=== PATIENT | male | born 1980 | race Caucasian/White ===

== ENCOUNTER 2019-06-07 01:59 | Emergency (ER) | payer OTHER, SELFPAY ==
--- NOTE | ~2019-06-07 | XR_ITS ---
EXAMINATION: XR lumbar spine 2-3V DATE: 06/07/2019 03:23 INDICATION: Low back pain. Fall. TECHNIQUE: 3 views of lumbar spine were obtained. COMPARISON: CT abdomen and pelvis 09/29/2018 FINDINGS: There are chronic bilateral L5 pars defects. There is mild chronic height loss of L5 verteb ral body posteriorly. There is 11 mm anterolisthesis of L5 on S1. There is mildly decreased disc heig ht at L1-L2 and moderately decreased disc height at L5-S1. There is multilevel mild facet joint osteo arthritis. There is moderate facet joint osteoarthritis at L5-S1. IMPRESSION: 1. Chronic bilateral L5 pars defects with grade 2 anterolisthesis of L5 on S1. 2. Moderate lumbar spondylosis. Reviewed, dictated and finalized at location A. ATOR CONSTRUCTOR
[2019-06-07 02:00] VITALS: BP 141/87; PULSE 76; RESP 16; TEMP 36.3; O2SAT 100
--- NOTE | 2019-06-07 02:43 | ED.FALL ---
HPI - Fall General Chief Complaint: Fall Stated Complaint: fell down steps Time Seen by Provider: 06/07/19 02:27 Source: patient and RN notes reviewed Mode of arrival: ambulatory Limitations: no limitations History of Present Illness HPI Narrative: Pt is a 38 y/o male with a Hx of L5 fracture, who presents to the ED with c/o fall happening around 1 AM this morning. He notes that he was walking outside after work this morning when he slipped and fell down 6 stairs. Pt denies any LOC during the fall. He states that he landed on his rt hip during the fall, and currently reports rt lateral hip pain. He also reports rt low back pain, but notes that he has a Hx of chronic low back pain secondary to his previous L5 fracture. Pt currently denies any numbness/tingling in his lower extremities. MD complaint: fall Onset (ago): hour(s) (1.5) Fall from: down stairs (#) (6 stairs) Place fall occurred: work Loss of consciousness: none Context: tripped/slipped Location of injury: pelvis (rt hip) Location of injury - extremities: Right: thigh (rt lateral hip) Associated symptoms (after fall): other (rt low back pain) Related Data Home Medications Medication Instructions Recorded Confirmed cholecalciferol (vitamin D3) 125 5,000 unit PO DAILY 05/25/19 mcg (5,000 unit) tablet multivitamin 1 tablet PO DAILY 05/25/19 omeprazole 20 mg capsule,delayed 20 mg PO ONCE cap 05/25/19 05/25/19 release Allergies Allergy/AdvReac Type Severity Reaction Status Date / Time Penicillins Allergy Unknown FOUND Unverified 06/07/19 02:29 DURING ALLERGY TESTING Review of Systems Review of Systems: All systems reviewed & are unremarkable except as noted in HPI and below Musculoskeletal: Musculoskeletal: Reports back pain (rt low back pain) and Reports arthralgias (rt lateral hip pain) Neurologic: Denies numbness (lower extremities), Denies tingling (lower extremities) and Denies other (LOC) [facility] Past Medical History Medical History Cubital tunnel syndrome Depression GERD (gastroesophageal reflux disease) HTN (hypertension) Inguinal hernia L5 vertebral fracture Sleep apnea Surgical History Surgical History Hx of gastric bypass Hx of inguinal hernia repair S/P cubital tunnel release rt arm Family History Family History Father Family history of diabetes mellitus in first degree relative Diabetes mellitus Hypertension Mother Family history of malignant neoplasm of bone Family history of malignant neoplasm of breast in first degree relative Other Cerebrovascular accident Family history of arthritis Family history of malignant neoplasm Social History Social History Smoking status: Never smoker Alcohol intake: never Comments PCP is Dr. Gandara. Exam Narrative: Exam Narrative: GENERAL: Well-appearing, well-nourished, and in no acute distress. HEAD: Normocephalic, atraumatic. EXTREMITIES: Normal strength and range of motion of the right lower extremity without evidence of contusion or abrasion to the right hip or patient fell. Back: No midline tenderness of thoracic or lumbar spine but there is mild right paraspinal muscular discomfort in the low lumbar region. No visual evidence of trauma. SKIN: Warm, dry, no rash. NEURO: No focal deficits. Alert and oriented x3. PSYCH: Normal mood and affect. Course Course Emergency Course: Informed of results. Declined acetaminophen. D/c home. Vital Signs Vital signs: Vital Signs Temperature 97.4 F L 06/07/19 02:00 Pulse Rate 76 06/07/19 02:00 Respiratory Rate 16 06/07/19 02:00 Blood Pressure 141/87 H 06/07/19 02:00 Pulse Oximetry 100 06/07/19 02:00 Temperature 98 F 06/07/19 04:00 Pulse Rate 81 06/07/19 04:00 Respiratory Rate 12 06/07/19
[2019-06-07 04:00] VITALS: BP 140/78; PULSE 81; RESP 12; TEMP 36.6; O2SAT 100
== END 2019-06-07 04:00 | disposition home or self-care (01) ==
PROVIDERS: Emergency Provider Emergency Medicine; PCP Internal Medicine
DX: S70.01XA Contusion of right hip, initial encounter (principal); S39.012A Strain of muscle, fascia and tendon of lower back, initial encounter; K21.9 Gastro-esophageal reflux disease without esophagitis; Z98.84 Bariatric surgery status; I10 Essential (primary) hypertension; G47.30 Sleep apnea, unspecified; W10.9XXA Fall (on) (from) unspecified stairs and steps, initial encounter
CPT/HCPCS: 72100; 99283

== ENCOUNTER 2020-07-02 14:22 | Emergency (ER) | payer OTHER, SELFPAY ==
--- NOTE | ~2020-07-02 | CT_ITS ---
EXAMINATION: CT brain wo con INDICATION: Transient ischemic attack, right-sided facial and toe numbness COMPARISON: None TECHNIQUE: Standard unenhanced head CT. The dose-length product (DLP) was 681.00 mGy-cm. The mA was a djusted according to patient size. Iterative reconstruction technique was employed. FINDINGS: There is no intracranial hemorrhage, acute infarction, or abnormal mass lesion. The ventric les are normal. There is no abnormal mass effect or midline shift. The sr-white matter differentiat ion is normal. The basal cisterns are patent. The orbits are normal. The paranasal sinuses, mastoids and calvarium are normal. IMPRESSION: 1. No acute intracranial abnormality. Reviewed, dictated and finalized at location A. BROKER
--- NOTE | ~2020-07-02 | XR_ITS ---
EXAMINATION: XR chest 1V portable DATE: 07/02/2020 16:51 INDICATION: Right-sided numbness extending to the right arm. Hypertension. TECHNIQUE: PA view of the chest was obtained. COMPARISON: None FINDINGS: The lungs are clear with no focal airspace opacities, pulmonary edema, pleural effusion or pneumothor ax. The cardiomediastinal silhouette is normal. Mild thoracic dextrocurvature with mild spondylosis. IMPRESSION: 1. No acute cardiopulmonary disease. Reviewed, dictated and finalized at location B. DRILL OPERATOR
[2020-07-02 14:51] VITALS: BP 128/68; PULSE 68; RESP 18; TEMP 36.5; O2SAT 98
--- NOTE | 2020-07-02 14:55 | ECG_ITS ---
Measurements Intervals [place] Rate: 73 P: 70 GA: 176 QRS: 48 QRSD: 92 T: 48 QT: 374 QTc: 413 Interpretive Statements SINUS RHYTHM BASELINE ARTIFACT- I, II, AVR NORMAL ECG Electronically Signed On 07-02-2020 15:15:05 [employer]ARR[employer] TIER by Mario Bueno D.O.
[2020-07-02 15:08] LABS: Basophils Percent Auto 0.5 % (0.2-1.2); Hematocrit 47.1 % (42.0-52.0); Hemoglobin 16.7 g/dL (14.0-18.0); Lymphocytes Absolute Auto 1.02 K/mm3 (0.9-3.2); Lymphocytes Percent Auto 25.4 % (18.3-44.2); Mean Corpuscular HGB Conc 35.5 g/dl (32-36); Mean Corpuscular Hemoglobin 31.9 pg (26-34); Mean Corpuscular Volume 89.9 fl (80-100); Mean Platelet Volume 9.1 fl (7.4-10.4); Monocytes Absolute Auto 0.3 K/mm3 (0.1-0.6); Monocytes Percent Auto 7.2 % (2.6-8.5); Neutrophils Absolute Auto 2.7 K/mm3 (1.3-6.7); Neutrophils Percent Auto 65.9 % (45.5-73.1); Platelet Count Result 203 k/mm3 (150-375); Red Blood Count 5.24 M/mm3 (4.6-6.20); Red Cell Distribution Width 12.1 % (11.5-14.5)
[2020-07-02 15:26] LABS: Anion Gap 6 mmol/L (8-16); Blood Urea Nitrogen 13 mg/dL (9-20); Calcium 9.3 mg/dL (8.4-10.2); Carbon Dioxide 30 mmol/L (22-30); Chloride 105 mmol/L (98-107); Estimated CRCL calculation 148 ml/min; Estimated Glomerular Filt Rate > 60; Glucose 94 mg/dL (75-110); Sodium 141 mmol/L (137-145)
[2020-07-02 15:37] LABS: Troponin I < 0.012 ng/mL (0.000-0.034)
[2020-07-02 19:11] VITALS: BP 129/81; PULSE 73; RESP 19; TEMP 36.9; O2SAT 97
[2020-07-02 20:00] VITALS: BP 122/75; PULSE 73; RESP 19; O2SAT 99
[2020-07-02 21:17] VITALS: BP 128/74; PULSE 69; RESP 20; O2SAT 100
--- NOTE | 2020-07-02 21:34 | ED.NEUROSD ---
HPI - Neuro Symptoms/Deficit General Chief Complaint: Neuro Symptoms/Deficit Stated Complaint: RT arm numbness x 2 days Time Seen by Provider: 07/02/20 18:56 History of Present Illness HPI Narrative: Patient is a 39-year-old male who presents ER with intermittent numbness of the right arm. Reports symptoms first began 2 days ago. He woke up at night and felt like his arm was a little bit heavy. It lasted for less than a minute after he woke up and he had full strength. He then felt like he might of had some increase sensitivity to his right cheek and right foot. The symptoms resolved rapidly as well. He then reports today he woke up with similar symptoms that resolved within a minute. Reports he has had no slurred speech or gait disturbance. He feels like his right cheek has increased sensitivity but does not hurt/tingle/burning. No rash. No previous history of CVA. Patient does have some chronic weakness in his right thumb/second digit due to a previous surgery and nerve injury. Related Data Home Medications Medication Instructions Recorded Confirmed cholecalciferol (vitamin D3) 125 5,000 unit PO DAILY 05/25/19 mcg (5,000 unit) tablet multivitamin 1 tablet PO DAILY 05/25/19 calcium citrate 500 mg-vit D3 12.5 gm PO 06/25/19 mcg (500 unit)/5 gram oral powder sennosides 8.6 mg-docusate sodium 1 tab-cap PO DAILY 06/25/19 50 mg tablet omeprazole 20 mg capsule,delayed 20 mg PO DAILY cap 01/04/20 01/04/20 release Allergies Allergy/AdvReac Type Severity Reaction Status Date / Time Penicillins Allergy Unknown FOUND Verified 07/02/20 21:18 DURING ALLERGY TESTING Review of Systems Review of Systems: All systems reviewed & are unremarkable except as noted in HPI and below Constitutional: Constitutional: Denies chills, Denies fever(s) and Denies weakness ENT: Denies nasal congestion and Denies sore throat Cardiovascular: Cardiovascular: Denies chest pain and Denies radiating jaw, neck or arm pain Neurologic: Denies syncope, Denies focal weakness and Reports numbness PMFSH Past Medical History Medical History (Updated 07/02/20 @ 21:40 by Pedro Luis Menendez MD) Cubital tunnel syndrome Depression GERD (gastroesophageal reflux disease) HTN (hypertension) Inguinal hernia L5 vertebral fracture Sleep apnea Surgical History Surgical History (Updated 01/04/20 @ 10:18 by Josemanuel Gandara MD) Hx of gastric bypass Hx of inguinal hernia repair S/P cubital tunnel release rt arm Family History Family History Father Family history of diabetes mellitus in first degree relative Diabetes mellitus Hypertension Mother Family history of malignant neoplasm of bone Family history of malignant neoplasm of breast in first degree relative Other Cerebrovascular accident Family history of arthritis Family history of malignant neoplasm Social History Social History Smoking status: Never smoker Alcohol intake: never Gender identity (if verbalized by the patient): Male Exam Narrative: Exam Narrative: GENERAL: Well-appearing, well-nourished, and in no acute distress. HEAD: Normocephalic, atraumatic. ENT: Mucous membranes moist. CHEST: Clear to auscultation. No respiratory distress. HEART: Regular rate and rhythm. Normal peripheral pulses. ABDOMEN: Soft, nontender, nondistended. EXTREMITIES: Normal range of motion. No edema. Atrophy to the first webspace of the right hand from previous neurologic injury. SKIN: Warm, dry, no rash. NEURO: No upper or lower extremity drift. Cranial nerves II through XII intact. Normal finger-nose testing. Alert and oriented x3. PSYCH: Normal mood and affect. Course Course Emergency Course: Unremarkable evaluation. Symptoms could be related to patient not wearing his CPAP with his sleep apnea given the fact that they occur in the early mornin
== END 2020-07-02 22:20 | disposition home or self-care (01) ==
PROVIDERS: Emergency Medicine; Emergency Provider Emergency Medicine; PCP Internal Medicine
DX: R20.2 Paresthesia of skin (principal); K21.9 Gastro-esophageal reflux disease without esophagitis; G47.30 Sleep apnea, unspecified; Z98.84 Bariatric surgery status
CPT/HCPCS: 36415; 70450; 71045; 80048; 84484; 85025; 93005; 99284

== ENCOUNTER 2020-07-17 10:47 | Outpatient (CLI) | payer OTHER, SELFPAY ==
--- NOTE | ~2020-07-17 | US_ITS ---
EXAMINATION: US carotid duplex BI DATE: 07/17/2020 11:29 INDICATION: Transient ischemic attack. TECHNIQUE: Grayscale, color Doppler, and pulsed Doppler images of the cervical carotid arteries were obtained. The degree of vessel stenosis is placed in one of the following categories: normal, <50%, 5 0-69%, >=70% but less than near-occlusion, near-occlusion, or total occlusion. Note that percent sten osis relative to normal distal artery lumen diameter is indirectly measured from velocity measurement s as described by Bairon, et al. Radiology 2003; [id number]. COMPARISON: None. FINDINGS: RIGHT: The right common carotid artery (CCA) peak systolic velocity (PSV) is 111 cm/s. The right internal ca rotid artery (ICA) PSV is 99 cm/s. The right ICA end-diastolic velocity (EDV) is 23 cm/s. The right I CA/CCA PSV ratio is 0.9. Grayscale and color Doppler images yield an estimate of <50% diameter reduct ion from plaque in the ICA. There is antegrade flow in the right vertebral artery. LEFT: The left CCA PSV is 98 cm/s. The left ICA PSV is 82 cm/s. The left ICA EDV is 21 cm/s. The left ICA/C CA PSV ratio is 0.8. Grayscale and color Doppler images yield an estimate of <50% diameter reduction from plaque in the ICA. There is antegrade flow in the left vertebral artery. IMPRESSION: 1. <50% stenosis in the right internal carotid artery. 2. <50% stenosis in the left internal carotid artery. Reviewed, dictated and finalized at location A.
== END 2020-07-17 10:48 | disposition home or self-care (01) ==
PROVIDERS: PCP Internal Medicine; Visit Provider Internal Medicine
DX: I65.23 Occlusion and stenosis of bilateral carotid arteries (principal)
CPT/HCPCS: 93880

== ENCOUNTER 2020-12-11 08:04 | Outpatient (CLI) | payer OTHER, SELFPAY ==
[2021-01-07 15:11] VITALS: BMI 36.6
--- NOTE | 2021-01-07 15:11 | WPDSLEEPSTUD ---
Sleep Study Date of Study: 12/11/20 Ordering Provider: Tresa Toledo MD Interpreting Physician: Tresa Toledo MD Sleep Study Type: Split Polysomnogram Height: 1.78 m Weight: 115.666 kg Body Mass Index: 36.6 Neck Circumference (inches): 18.5 [place]: 8 Reason for Sleep Study prior obstructive sleep apnea, had weight loss surgery, recent TIA event. Sleep History Ambrsoe Christensen IV is a 40 year old male with a history of QUEENIE 15+ years ago when he was super obese, 400 lb, and had gastric surgery 3 years ago with a huge loss of weight, now around 250 lb, lowest was 210 lb. He wants repeat evaluation and treatment, as he has memory problems. Although he did not tolerate CPAP very well initially, he is still interested in possible use of CPAP again as a recent tingling episode was suspicious for a TIA, and Dr Gandara wanted a complete evaluation including sleep evaluation. He is a restless sleeper, was moving quite a bit and this made it difficult to keep the mask on. He occasionally awakens from sleep feeling short of breath. He rarely awakens at night with heartburn symptoms. He frequently snores loudly. He rarely has trouble sleeping with a cold. He occasionally wakes up gasping for breath at night. He rarely has breathing problems at night observed by others. He rarely sweats excessively at night. He does not notice his heart pounding or beating irregularly at night. He occasionally falls asleep during the day, occasionally falls asleep involuntarily but never while driving. He does not have loss of muscle tone with strong emotion. He does have problems with excessive daytime sleepiness, and is drowsy for 3 hours after waking in the morning. He does not feel paralyzed on waking or falling asleep and does not have vivid dreamlike scenes upon awakening or falling asleep. He does not feel afraid to go to sleep. He rarely has nightmares. He rarely remembers his dreams. He rarely has racing thoughts, feelings of sadness, depression or anxiety. He rarely notices parts of his body jerking. He does not kick at night. He rarely has crawling and aching feelings in his legs. He does not have any kind of leg pain at night. He does not have morning jaw pain. He frequently grinds his teeth during sleep. He rarely is bothered by pain during the day and is not awakened by pain at night. He rarely wakes up feeling stiff in the morning. He occasionally wakes up with sore achy muscles. He has memory problems and concentration difficulties. His normal bedtime is between 2:30 and 3:00 a.m., falling asleep within 10-20 minutes. He does not have nocturia in general. He does not wake up during the night. He wakes up it only for a moment and he rolls over returns to sleep within 5 minutes. He wakes the morning by 11:00 a.m., not feeling refreshed. He does not consume caffeine. e wakes up around 10:15 a.m. He does not take naps in the day although he does have recovery sleep on the weekends. His work schedule is from noon until 8:00 p.m. at the [employer]. He does not take naps, and a nap is not refreshing. He is usually drowsy in the morning for 3 hours or longer. [facility] Past Medical History Medical History Cubital tunnel syndrome Depression GERD (gastroesophageal reflux disease) HTN (hypertension) Inguinal hernia L5 vertebral fracture Obstructive sleep apnea Sleep apnea Surgical History Surgical History Hx of gastric bypass Hx of inguinal hernia repair S/P cubital tunnel release rt arm Family History Family History Father Family history of diabetes mellitus in first degree relative Diabetes mellitus Hypertension Mother Family history of malignant neoplasm of bone Family history of malignant neoplasm of breast in first degree relative Other Cerebrovascular accident
== END 2020-12-12 06:40 | disposition home or self-care (01) ==
LOC: ANHCSM 14:50
PROVIDERS: PCP Internal Medicine; Visit Provider Internal Medicine Critical Care Medicine
DX: G47.33 Obstructive sleep apnea (adult) (pediatric) (principal)
CPT/HCPCS: 95811

== ENCOUNTER 2021-09-28 00:08 | Emergency (ER) | payer OTHER, SELFPAY ==
--- NOTE | ~2021-09-28 | CT_ITS ---
EXAMINATION: CT abdomen pelvis wo con DATE: 09/28/2021 00:55 INDICATION: Possible swallowed foreign body (popsicle stick) TECHNIQUE: Computed tomography (CT) of the abdomen and pelvis was performed without intravenous contr ast. Automated exposure control and iterative reconstruction technique were employed. Exam dose: 155 4.32 mGy-cm total exam DLP. COMPARISON: 09/29/2018 CT abdomen pelvis FINDINGS: The lung bases are clear. Normal heart size. No pericardial or pleural effusion. Status post gastric bypass surgery. The gallbladder is not visualized. No hepatic, splenic, pancreatic, and adrenal or renal space-occupy ing mass lesion is evident. Normal caliber of the abdominal aorta. No intraperitoneal or retroperitoneal or pelvic mass lesion or adenopathy or ascites. The urinary bladder is evacuated. Prostate gland is unremarkable. No evidence of appendicitis. No bowel obstruction, bowel wall thickening, pneumatosis or intraperiton eal free air. Small fat-containing umbilical hernia. Bilateral L5 pars interarticularis defects with grade 2 anterolisthesis at L5-S1. Diffuse idiopathic skeletal hyperostosis of the thoracic spine. Bilateral hip osteoarthritis. IMPRESSION: No radiopaque foreign body identified Bilateral L5 pars interarticularis defects with grade 2 anterolisthesis at L5-S1 Reviewed, dictated and finalized at Location A. Reviewed, dictated and finalized at location A. IMPRESSION: No radiopaque foreign body identified Bilateral L5 pars interarticularis defects with grade 2 anterolisthesis at L5-S 1
[2021-09-28 00:11] VITALS: BP 148/89; PULSE 93; RESP 18; TEMP 36.2; O2SAT 100
--- NOTE | 2021-09-28 00:40 | PC.NURSE ---
Patient taken to CT at this time.
--- NOTE | 2021-09-28 00:40 | ED.GENADULT ---
HPI - General Adult General Chief complaint: Skin/Abscess/Foreign Body Stated complaint: possibly swallowed FB Time Seen by Provider: 09/28/21 00:22 History of Present Illness HPI narrative: 40-year-old male presents emergency room plaints of accidental ingestion of a foreign object. Patient states that he was finishing a popsicle, when he but the second half and accidentally ingested part of the wooden stick. Patient denies any dysphagia or difficulty swallowing. Denies any abdominal pain at this time. Related Data Home Medications Medication Instructions Recorded Confirmed cholecalciferol (vitamin D3) 125 5,000 unit PO DAILY 05/25/19 05/29/21 mcg (5,000 unit) tablet multivitamin 1 tablet PO DAILY 05/25/19 05/29/21 calcium citrate 500 mg-vit D3 12.5 gm PO 06/25/19 05/29/21 mcg (500 unit)/5 gram oral powder sennosides 8.6 mg-docusate sodium 1 tab-cap PO DAILY 06/25/19 05/29/21 50 mg tablet levocetirizine 5 mg tablet (Xyzal) 5 mg PO DAILY 07/10/20 05/29/21 ascorbic acid (vitamin C) 500 mg mg PO 11/06/20 05/29/21 capsule Allergies Allergy/AdvReac Type Severity Reaction Status Date / Time Penicillins Allergy Unknown FOUND Verified 05/29/21 15:09 DURING ALLERGY TESTING Review of Systems Review of Systems: CONSTITUTIONAL: Denies fever, chills, or sweats. EYES: Denies visual changes, redness, or discharge. ENT: Denies rhinorrhea, congestion, sore throat, or otalgia. CARDIOVASCULAR: Denies chest pain, palpitations, or edema. RESPIRATORY: Denies cough or dyspnea. GASTROINTESTINAL: Denies abdominal pain, nausea, vomiting, or diarrhea. GENITOURINARY: Denies dysuria or hematuria. SKIN: Denies rash or itching. MUSCULOSKELETAL: Denies back pain, joint pain, or myalgia. NEUROLOGIC: Denies headache, numbness, dizziness, or weakness. PSYCHIATRIC: Denies anxiety or depression. [facility] Past Medical History Medical History Cubital tunnel syndrome Depression GERD (gastroesophageal reflux disease) Inguinal hernia L5 vertebral fracture Obstructive sleep apnea Sleep apnea Surgical History Surgical History Hx of gastric bypass Hx of inguinal hernia repair S/P cubital tunnel release rt arm Family History Family History Father Family history of diabetes mellitus in first degree relative Diabetes mellitus Hypertension Mother Family history of malignant neoplasm of bone Family history of malignant neoplasm of breast in first degree relative Other Cerebrovascular accident Family history of arthritis Family history of malignant neoplasm Social History Social History Smoking status: Never smoker Second hand tobacco smoke exposure: Yes Alcohol intake: never Substance use: never Substance use type: does not use Gender identity (if verbalized by the patient): Male Exam Narrative: GENERAL: Well-appearing, well-nourished, and in no acute distress. HEAD: Normocephalic, atraumatic. EYES: PERRLA and EOMI. CHEST: Clear to auscultation. No respiratory distress. No wheezes rales or rhonchi HEART: Regular rate and rhythm. No murmur heard. Normal peripheral pulses. ABDOMEN: Soft, nontender, obese, normal active bowel sounds. EXTREMITIES: Normal range of motion. No edema. SKIN: Warm, dry, no rash. NEURO: No focal deficits. Alert and oriented x3. PSYCH: Normal mood and affect. Course Vital Signs Vital signs: Vital Signs Temperature 36.2 C L 09/28/21 00:11 Pulse Rate 93 09/28/21 00:11 Respiratory Rate 18 09/28/21 00:11 Blood Pressure 148/89 H 09/28/21 00:11 Pulse Oximetry 100 09/28/21 00:11 Oxygen Delivery Room Air 09/28/21 00:11 Temperature 36.2 C L 09/28/21 00:11 Pulse Rate 93 09/28/21 00:11 Respiratory Rate 18 09/28/21 00:1
[2021-09-28 02:03] VITALS: BP 151/93; PULSE 82; RESP 17; O2SAT 99
== END 2021-09-28 02:23 | disposition home or self-care (01) ==
PROVIDERS: Emergency Provider Nurse Practitioner Family; PCP Internal Medicine
DX: Z03.821 Encounter for observation for suspected ingested foreign body ruled out (principal); K21.9 Gastro-esophageal reflux disease without esophagitis; G47.33 Obstructive sleep apnea (adult) (pediatric); Z98.84 Bariatric surgery status; Z79.82 Long term (current) use of aspirin
CPT/HCPCS: 74176; 99284

== ENCOUNTER 2022-10-17 07:19 | Emergency (ER) | payer OTHER, SELFPAY ==
[2022-10-17 07:26] VITALS: BP 128/85; PULSE 81; RESP 16; TEMP 36.2; O2SAT 99
--- NOTE | 2022-10-17 07:45 | ED.DENTAL ---
HPI - Dental/Oral General Chief complaint: Dental/Oral Stated complaint: dental pain/headache Time Seen by Provider: 10/17/22 07:32 History of Present Illness HPI Narrative: Patient is a 41-year-old male who presents ER with distal pain. Left upper mouth. Ongoing for 3 days. Increasing in intensity and now causing him headache. No fevers or chills or sweats. No difficulty breathing. Has increased pain with drinking and air hits his mouth. No facial swelling. Related Data Home Medications Medication Instructions Recorded Confirmed cholecalciferol (vitamin D3) 125 5,000 unit PO DAILY 05/25/19 05/21/22 mcg (5,000 unit) tablet multivitamin 1 tablet PO DAILY 05/25/19 05/21/22 calcium citrate 500 mg-vit D3 12.5 gm PO 06/25/19 05/21/22 mcg (500 unit)/5 gram oral powder sennosides 8.6 mg-docusate sodium 1 tab-cap PO DAILY 06/25/19 05/21/22 50 mg tablet levocetirizine 5 mg tablet (Xyzal) 5 mg PO DAILY 07/10/20 05/21/22 ascorbic acid (vitamin C) 500 mg mg PO 11/06/20 05/21/22 capsule Allergies Allergy/AdvReac Type Severity Reaction Status Date / Time Penicillins Allergy Unknown FOUND Verified 05/21/22 13:51 DURING ALLERGY TESTING Review of Systems Constitutional: Constitutional: Denies chills and Denies fever(s) ENT: Denies nasal congestion and Denies sore throat Comments: Positive dental pain Respiratory: Respiratory: Denies cough and Denies dyspnea PMFSH Past Medical History Medical History Cubital tunnel syndrome Depression GERD (gastroesophageal reflux disease) Inguinal hernia L5 vertebral fracture Obstructive sleep apnea Sleep apnea Surgical History Surgical History Hx of gastric bypass Hx of inguinal hernia repair S/P cubital tunnel release rt arm Family History Family History Father Family history of diabetes mellitus in first degree relative Diabetes mellitus Hypertension Mother Family history of malignant neoplasm of bone Family history of malignant neoplasm of breast in first degree relative Other Cerebrovascular accident Family history of arthritis Family history of malignant neoplasm Social History Social History Smoking status: Never smoker Second hand tobacco smoke exposure: Yes Alcohol intake: never Substance use: never Substance use type: does not use Lack of Transportation: No Lack of Food: Never True Current Housing: I Have Housing Concerned About Future Housing: No Difficulty Paying Gas/Electric Bills: No Difficulty Paying for Meds: No Currently Unemployed: No Education: High School Diploma/GED Difficulty w/ Childcare or Family Care: No Gender identity (if verbalized by the patient): Male Exam Narrative: GENERAL: Well-appearing, well-nourished, and in no acute distress. HEAD: Normocephalic, atraumatic. ENT: Mucous membranes moist. Erosion of the gum or tooth #12 with further exposure. This is the area of discomfort. No fluctuant abscess. No facial swelling. Left tympanic membrane normal in appearance. NEURO: Alert and oriented x3. PSYCH: Normal mood and affect. Course Course Emergency Course: Patient resting comfortably. Discussed treatment plan including antibiotics and need for follow-up with dentist. Patient verbalized understanding. Also recommend Tylenol and ibuprofen as needed for pain will be given a small amount of Tylenol with hydrocodone for home. Also recommended to waxed to decrease irritability of the exposed nerve root. Vital Signs Vital signs: Vital Signs Temperature 97.2 F L 10/17/22 07:26 Pulse Rate 81 10/17/22 07:26 Respiratory Rate 16 10/17/22 07:26 Blood Pressure 128/85 10/17/22 07:26 Pulse Oximetry 99 10/17/22 07:26 Oxygen De
== END 2022-10-17 07:59 | disposition home or self-care (01) ==
PROVIDERS: Emergency Provider Emergency Medicine
DX: K08.89 Other specified disorders of teeth and supporting structures (principal); K21.9 Gastro-esophageal reflux disease without esophagitis; G47.33 Obstructive sleep apnea (adult) (pediatric); Z98.84 Bariatric surgery status
CPT/HCPCS: 99283

== ENCOUNTER 2023-11-23 13:36 | Emergency (ER) | payer OTHER, SELFPAY ==
--- NOTE | ~2023-11-23 | XR_ITS ---
XR chest 2V Ordering provider: Hira Murray III, DO History: 43 years Male with . chest pain INTERMITTENTLY X 1 DAY . Comparison: July 02, 2020 FINDINGS: MEDIASTINUM: The cardiac silhouette is not enlarged. LUNGS: No infiltrates, effusions or pneumothorax. OTHER: No free air under the diaphragm. IMPRESSION: No acute cardiopulmonary pathology. Reviewed, dictated and finalized at location A.
--- NOTE | 2023-11-23 13:37 | ECG_ITS ---
Test Date: 2023-11-23 13:42:20 Measurements Intervals [place] Rate: 80 P: 52 PA: 170 QRS: 7 QRSD: 101 T: 35 QT: 360 QTc: 418 Interpretive Statements SINUS RHYTHM NONSPECIFIC ST-T WAVE ABNORMALITY- INF/HIGH LAT LEADS BASELINE ARTIFACT- I, III, AVL BORDERLINE ECG No previous ECG available for comparison Electronically Signed On 11-23-2023 14:03:28 CDT by Mario Bueno D.O.
[2023-11-23 13:38] VITALS: BP 154/88; PULSE 92; RESP 16; TEMP 36.5; O2SAT 98
--- NOTE | 2023-11-23 13:43 | ED.CHESTPAIN ---
HPI - Chest Pain General Chief Complaint: Chest Pain <SUDHIR Carr Last Filed: 11/24/23 17:32> Stated Complaint: cp <Edita Hung PA-C - Last Filed: 11/24/23 17:32> Time Seen by Provider: 11/23/23 13:43 <Edita Hung PA-C - Last Filed: 11/24/23 17:32> Focused HPI: This is a 43-year-old male that presents to the emergency department for left-sided chest pain. Ongoing intermittently over the last couple of days. Reports radiation into his arm. History of hypertension, has not been taking his medication the last couple of days. GENERAL: Well-appearing, well-nourished, and in no acute distress. HEAD: Normocephalic, atraumatic. CHEST: Clear to auscultation. ?No respiratory distress. HEART: Regular rate and rhythm.? NEURO: ?Alert and oriented x3. Patient screened in triage and initial orders placed.? ?Additional care and disposition to be based upon?diagnostic testing and treatment. <SUDHIR Carr Last Filed: 11/24/23 17:32> Source: patient <Melita Bauman PA-C - Last Filed: 11/23/23 22:13> Mode of arrival: ambulatory <Melita Bauman PA-C - Last Filed: 11/23/23 22:13> Limitations: no limitations <SUDHIR Moore Last Filed: 11/23/23 22:13> History of Present Illness HPI narrative: Agree with above HPI. Describes discomfort as a tingling/buzzing sensation in his left-sided chest. Denies any other associated symptoms. Denies shortness of breath, diaphoresis, nausea, abdominal pain, numbness, weakness, lower extremity pain or swelling. Patient reports he takes an aspirin 81 mg for his blood pressure. He is not on any other antihypertensives. He does report being on rosuvastatin after having a TIA like episode a few years ago. Denies history of diabetes, smoking history, family history of cardiac disease. <SUDHIR Moore Last Filed: 11/23/23 22:13> Related Data Home Medications: Home Medications Medication Instructions Recorded Confirmed cholecalciferol (vitamin D3) 125 5,000 unit PO DAILY 05/25/19 11/18/23 mcg (5,000 unit) tablet multivitamin 1 tablet PO DAILY 05/25/19 11/18/23 calcium citrate 500 mg-vit D3 12.5 gm PO 06/25/19 11/18/23 mcg (500 unit)/5 gram oral powder sennosides 8.6 mg-docusate sodium 1 tab-cap PO DAILY 06/25/19 11/18/23 50 mg tablet levocetirizine 5 mg tablet (Xyzal) 5 mg PO DAILY 07/10/20 11/18/23 ascorbic acid (vitamin C) 500 mg mg PO 11/06/20 11/18/23 capsule <Edita Hung PA-C - Last Filed: 11/24/23 17:32> Allergies/Adverse Reactions: Allergies Allergy/AdvReac Type Severity Reaction Status Date / Time Penicillins Allergy Unknown FOUND Verified 11/23/23 13:41 DURING ALLERGY TESTING <Edita Hung PA-C - Last Filed: 11/24/23 17:32> Review of Systems Review of Systems: CONSTITUTIONAL: Denies fever, chills, or sweats. CARDIOVASCULAR: See HPI. RESPIRATORY: Denies cough or dyspnea. GASTROINTESTINAL: Denies abdominal pain, nausea, vomiting MUSCULOSKELETAL: See HPI. NEUROLOGIC: Denies headache, dizziness, numbness, or weakness. <Melita Bauman PA-C - Last Filed: 11/23/23 22:13> All systems reviewed & are unremarkable except as noted in HPI and below <Melita Bauman PA-C - Last Filed: 11/23/23 22:13> [facility] Past Medical History Medical History: Medical History Cubital tunnel syndrome Depression GERD (gastroesophageal reflux disease) Inguinal hernia L5 vertebral fracture Obstructive sleep apnea Sleep apnea <Edita Hung PA-C - Last Filed: 11/24/23 17:32> Surgical History Surgical History: Surgical History Hx of gastric bypass Hx of inguinal hernia repair S/P cubital tunnel release rt arm <Edita Hung PA-C - Last Filed: 11/24/23 17:32> Family History Family
[2023-11-23 13:54] LABS: Basophils Percent Auto 0.5 % (0.2-1.2); Eosinophils Absolute Auto 0.1 K/mm3 (0-0.3); Eosinophils Percent Auto 1.2 % (0-4.4); Hemoglobin 15.9 g/dL (14.0-18.0); Immature Granulocyte Absolute 0.01 K/mm3 (0.00-0.031); Immature Granulocyte Percent A 0.2 % (0-0.5); Mean Corpuscular HGB Conc 35.3 g/dl (32-36); Mean Corpuscular Hemoglobin 31.7 pg (26-34); Mean Corpuscular Volume 89.8 fl (80-100); Mean Platelet Volume 9.1 fl (7.4-10.4); Monocytes Absolute Auto 0.5 K/mm3 (0.1-0.6); Monocytes Percent Auto 8.6 % (2.6-8.5); Neutrophils Absolute Auto 4.1 K/mm3 (1.3-6.7); Neutrophils Percent Auto 66.5 % (45.5-73.1); Platelet Count Result 217 k/mm3 (150-375); Red Blood Count 5.01 M/mm3 (4.6-6.20); Red Cell Distribution Width 12.9 % (11.5-14.5); White Blood Count 6.1 K/mm3 (4.5-10.0)
[2023-11-23 14:04] LABS: Prothrombin Time 13.2 Seconds (11.1-14.7)
[2023-11-23 14:05] LABS: Partial Thromboplastin Time 29.4 Seconds (22.3-36.8)
[2023-11-23 14:14] LABS: Alanine Aminotransferase 68 U/L (6-50); Albumin Level 4.6 g/dL (3.5-5.1); Alkaline Phosphatase 54 U/L (38-126); Anion Gap 10 mmol/L (4-12); Aspartate Amino Transferase 46 U/L (17-59); Bilirubin,Total 0.9 mg/dL (0.2-1.3); Blood Urea Nitrogen 18 mg/dL (9-20); Calcium 9.5 mg/dL (8.4-10.2); Carbon Dioxide 26 mmol/L (22-30); Chloride 103 mmol/L (98-107); Estimated CRCL calculation 171 ml/min; Estimated Glomerular Filt Rate > 60; Glucose 105 mg/dL (65-110); Lipase 53 U/L (23-300); Potassium 4.2 mmol/L (3.4-5.0); Sodium 139 mmol/L (137-145)
[2023-11-23 14:25] LABS: Troponin I < 0.012 ng/mL (0.000-0.034)
--- NOTE | 2023-11-23 17:05 | ECG_ITS ---
Test Date: 2023-11-23 17:26:52 Measurements Intervals [place] Rate: 69 P: 47 [place]: 187 QRS: 14 QRSD: 95 T: 31 QT: 388 QTc: 416 Interpretive Statements SINUS RHYTHM CONSIDER INFERIOR INFARCT, AGE INDETERMINATE ABNORMAL ECG Compared to ECG 11/23/2023 13:42:20 NO SIGNIFICANT CHANGE Electronically Signed On 11-24-2023 08:24:25 CDT by Mario Bueno D.O.
[2023-11-23 17:47] LABS: Troponin I < 0.012 ng/mL (0.000-0.034)
[2023-11-23 18:05] VITALS: PULSE 71; RESP 16; O2SAT 98
[2023-11-23 18:07] VITALS: BP 137/87; PULSE 88; RESP 16; O2SAT 97
[2023-11-23 18:26] VITALS: BP 162/92; PULSE 82; RESP 16; TEMP 36.3; O2SAT 99
== END 2023-11-23 18:28 | disposition home or self-care (01) ==
PROVIDERS: Emergency Medicine; Emergency Provider Physician Assistant; PCP Nurse Practitioner
DX: R07.89 Other chest pain (principal); I10 Essential (primary) hypertension; K21.9 Gastro-esophageal reflux disease without esophagitis; G47.33 Obstructive sleep apnea (adult) (pediatric); Z98.84 Bariatric surgery status; Z79.82 Long term (current) use of aspirin; Z79.899 Other long term (current) drug therapy; Z77.22 Contact with and (suspected) exposure to environmental tobacco smoke (acute) (chronic); R94.31 Abnormal electrocardiogram [ECG] [EKG]
CPT/HCPCS: 36415; 71046; 80053; 83690; 84484; 85025; 85610; 85730; 93005; 99284

== ENCOUNTER 2024-01-11 07:27 | Emergency (ER) | payer OTHER, SELFPAY ==
--- NOTE | ~2024-01-11 | XR_ITS ---
Lumbosacral Spine: AP and lateral views Clinical History: Pain Findings: The normal lordotic curve is maintained. There are probable bilateral L5 pars interarticula ris defects, with 17 mm anterolisthesis of L5 over S1. There is severe degenerative disc narrowing at L1-L2 and L5-S1. There is advanced facet arthropathy at L4-L5 and L5-S1, with moderate facet arthrop athy in the upper lumbar spine. The sacroiliac joints are normally outlined. Impression: Bilateral L5 pars interarticularis defects, with 17 mm anterolisthesis of L5 over S1. Moderate to advanced degenerative spondylosis otherwise, as detailed above. Reviewed, dictated and finalized at location M. Impression: Bilateral L5 pars interarticularis defects, with 17 mm anterolisthesis of L5 ov er S1. Moderate to advanced degenerative spondylosis otherwise, as detailed above.
[2024-01-11 07:31] VITALS: BP 130/92; PULSE 77; RESP 16; TEMP 36.2; O2SAT 99
--- NOTE | 2024-01-11 07:57 | ED.BACK ---
HPI - Back Pain/Injury General Chief Complaint: Back Pain/Injury Stated Complaint: back pain Time Seen by Provider: 01/11/24 07:34 History of Present Illness HPI Narrative: Patient is a 43-year-old male who presents ER with right-sided low back pain. Sudden onset at 3:30 a.m. this morning. Reports he had had discomfort in the same area over last year. No recent trauma. Is concerned he may have a kidney stone or appendicitis. No abdominal pain or testicular pain. No urinary frequency urgency or dysuria. No lower extremity numbness or weakness. Pain is worse with twisting bending. No alleviating factors. Related Data Home Medications Medication Instructions Recorded Confirmed cholecalciferol (vitamin D3) 125 5,000 unit PO DAILY 05/25/19 12/02/23 mcg (5,000 unit) tablet multivitamin 1 tablet PO DAILY 05/25/19 12/02/23 calcium citrate 500 mg-vit D3 12.5 gm PO 06/25/19 12/02/23 mcg (500 unit)/5 gram oral powder sennosides 8.6 mg-docusate sodium 1 tab-cap PO DAILY 06/25/19 12/02/23 50 mg tablet levocetirizine 5 mg tablet (Xyzal) 5 mg PO DAILY 07/10/20 12/02/23 ascorbic acid (vitamin C) 500 mg mg PO 11/06/20 12/02/23 capsule Allergies Allergy/AdvReac Type Severity Reaction Status Date / Time Penicillins Allergy Unknown FOUND Verified 01/11/24 08:01 DURING ALLERGY TESTING Review of Systems Review of Systems: All systems reviewed & are unremarkable except as noted in HPI and below Constitutional: Constitutional: Reports no additional constitutional complaints Gastrointestinal: Gastrointestinal: Reports no additional gastrointestinal complaints Genitourinary: Genitourinary: Reports no additional male genitourinary complaints Musculoskeletal: Musculoskeletal: Reports back pain, Denies arthralgias and Denies joint swelling PMF Past Medical History Medical History Cubital tunnel syndrome Depression GERD (gastroesophageal reflux disease) Inguinal hernia L5 vertebral fracture Obstructive sleep apnea Sleep apnea Surgical History Surgical History Hx of gastric bypass Hx of inguinal hernia repair S/P cubital tunnel release rt arm Family History Family History Father Family history of diabetes mellitus in first degree relative Diabetes mellitus Hypertension Mother Family history of malignant neoplasm of bone Family history of malignant neoplasm of breast in first degree relative Other Cerebrovascular accident Family history of arthritis Family history of malignant neoplasm Social History Social History Smoking status: Never smoker Second hand tobacco smoke exposure: Yes Alcohol intake: never Substance use: never Substance use type: does not use Lack of Transportation: No Lack of Food: Never True Current Housing: I Have Housing Concerned About Future Housing: No Difficulty Paying Gas/Electric Bills: No Difficulty Paying for Meds: No Currently Unemployed: No Education: High School Diploma/GED Difficulty w/ Childcare or Family Care: No Gender identity (if verbalized by the patient): Male Exam Narrative: GENERAL: Well-appearing, morbidly obese, and in no acute distress. HEAD: Normocephalic, atraumatic. ENT: Mucous membranes moist. CHEST: Clear to auscultation. No respiratory distress. HEART: Regular rate and rhythm. Normal peripheral pulses. ABDOMEN: Soft, nontender, nondistended. BACK: No midline tenderness the T/L spine. No reproducible paraspinal muscle tenderness or palpable muscle spasm. EXTREMITIES: Normal range of motion. No edema. NEURO: Alert and oriented x3. PSYCH: Normal mood and affect. Course Course Emergency Course: Educated on diet degenerative changes on x-ray. Urinalysis and blood work normal.
[2024-01-11 07:58] LABS: Add Urine Microscopic? NO; Appearance Urine Clear (Clear); Bilirubin Urine Negative (Negative); Blood Urine Negative (Negative); Color Urine Yellow (Yellow); Glucose Urine UA Negative (Negative); Ketones Urine Negative (Negative); Leukocyte Esterase Ur Negative LEU/UL (Negative); Nitrate Urine Negative (Negative); Protein Urine Negative (Negative); Specific Grav Ur 1.022 (1.001-1.035)
[2024-01-11] MEDS: KETOROLAC 30 MG/ML VIAL (*BKC) IV PUSH (08:01)
[2024-01-11 08:02] LABS: Basophils Percent Auto 0.6 % (0.2-1.2); Eosinophils Absolute Auto 0.1 K/mm3 (0-0.3); Eosinophils Percent Auto 1.7 % (0-4.4); Hematocrit 45.9 % (42.0-52.0); Hemoglobin 16.4 g/dL (14.0-18.0); Immature Granulocyte Absolute 0.02 K/mm3 (0.00-0.031); Immature Granulocyte Percent A 0.3 % (0-0.5); Lymphocytes Absolute Auto 1.51 K/mm3 (0.9-3.2); Lymphocytes Percent Auto 23.4 % (18.3-44.2); Mean Corpuscular HGB Conc 35.7 g/dl (32-36); Mean Corpuscular Volume 89.5 fl (80-100); Monocytes Absolute Auto 0.5 K/mm3 (0.1-0.6); Monocytes Percent Auto 8.2 % (2.6-8.5); Neutrophils Absolute Auto 4.2 K/mm3 (1.3-6.7); Neutrophils Percent Auto 65.8 % (45.5-73.1); Platelet Count Result 239 k/mm3 (150-375); Red Blood Count 5.13 M/mm3 (4.6-6.20); Red Cell Distribution Width 12.8 % (11.5-14.5); White Blood Count 6.5 K/mm3 (4.5-10.0)
[2024-01-11 08:17] LABS: Alanine Aminotransferase 67 U/L (6-50); Albumin Level 4.4 g/dL (3.5-5.1); Alkaline Phosphatase 56 U/L (38-126); Anion Gap 11 mmol/L (4-12); Aspartate Amino Transferase 48 U/L (17-59); Bilirubin,Total 0.7 mg/dL (0.2-1.3); Blood Urea Nitrogen 15 mg/dL (9-20); Calcium 9.4 mg/dL (8.4-10.2); Carbon Dioxide 27 mmol/L (22-30); Chloride 102 mmol/L (98-107); Estimated CRCL calculation 171 ml/min; Estimated Glomerular Filt Rate > 60; Glucose 108 mg/dL (65-110); Sodium 140 mmol/L (137-145)
== END 2024-01-11 10:21 | disposition home or self-care (01) ==
PROVIDERS: Emergency Provider Emergency Medicine; PCP Nurse Practitioner
DX: M54.50 Low back pain, unspecified (principal); F32.A Depression, unspecified; K21.9 Gastro-esophageal reflux disease without esophagitis; G47.33 Obstructive sleep apnea (adult) (pediatric)
CPT/HCPCS: 36415; 72100; 80053; 81003; 85025; 96374; 99284; J1885

== ENCOUNTER 2024-08-24 13:08 | Outpatient (CLI) | payer OTHER, SELFPAY ==
--- OUTSIDE RECORDS SUMMARY | 2024-08-24 13:13 | XMS_ITS | Clinical Summary ---
Author Organization [facility] Address [address] [place] [address] Care Team Providers Care Vocational Training Teacher Name Role Phone Unavailable Primary Care Provider Unavailabl e Source Comments [facility],non-owned Affiliates and Associated Physician Practices is amultiple site organization consisting of ambulatory clinics and hospital sitesin [place] and [place]. This disclosure is being madepursuant to the Care Everywhere program and may not contain all information available regarding this patient. Last updated 18.[facility] Allergies Active Allergy Reactions Criticality Noted Date Comments Penicillins Unknown 12/31/2016 Medications * Be aware that medications may not be up to date on this document. Alwaysverify current medications with the patient. senna (SENOKOT) 8.6 MG tablet Take 8.6 mg by mouth once daily Active omeprazole (PRILOSEC) 20 MG capsule Take 1 capsule by mouth daily before breakfast 30 capsule 5 8 Active Additional Information Patient taking differently: 40 mgOral DAILY BEFORE BREAKFAST, Reported on 03/06/2021 vitamin D3 (D3-1000) 1000 UNIT capsule Take 1,000 Units by mouth once daily Active multivitamin daily tablet Take 1 tablet by mouth daily with food Active Calcium Citrate-Vitamin D (CALCIUM CITRATE +D PO) Activ e ASPIRIN 81 PO Active rosuvastatin (CRESTOR) 5 MG tablet Take 5 mg by mouth once daily Active ascorbic acid (VITAMIN C) 500 MG tablet Take 500 mg by mouth once daily Active Active Problems No known active problems Social History Tobacco Use Types Packs/Day Years Used Date Smoking Tobacco: Never Smokeless Tobacco: Never Alcohol Use Standard Drinks/Week Comments No 0 (1 standard drink = 0.6 oz pur e alcohol) Sex and Gender Information Value Date Recorded Sex Assigned at Not on file Legal Sex Male 2:07 PM CDT Gender Identity Not on file Sexual Orientation Not on file Last Filed Vital Signs Vital Sign Reading Time Taken Comments Blood Pressure 108/62 11/01/2018 2:46 PM CDT Pulse 80 11/01/2018 2:46 PM CDT Temperature 36.6 C (97.8 F) 10/25/2018 12:26 PM CDT Respiratory Rate 16 10/25/2018 1:37 PM CDT Oxygen Saturation 95% 10/25/2018 1:37 PM CDT Inhaled Oxygen Concentration - - Weight 120.2 kg (265 lb) 03/06/2021 1:55 PM CDT Height 177.8 cm (5' 10 ) 03/06/2021 1:55 PM CDT Body Mass Index 38.02 03/06/2021 1:55 PM CDT Plan of Treatment Health Maintenance Due Date Last Done Comments COLOGUARD (AGES 45-75) - COLON CA SCREENING 1978 COLON MONITORING 1978 COLONOSCOPY - COLON CA SCREENING 1978 CT COLONOGRAPHY - COLON CA SCREENING 1978 Colorectal Cancer Screening 1978 FIT - COLON CA SCREENING 1978 FLEX SIG - COLON CA SCREENING 1978 HIV SCREENING 1993 HEPATITIS C SCREENING 11/01/1996 DTAP/TDAP/TD VACCINES (1 - Tdap) 1997 HEPATITIS B VACCINE (1 of 3 - 19+ 3-dose series) 1997 SCREENING FOR DIABETES 06/02/2021 9, 08/03/2017, 08/03/2017, Additional history exists COVID-19 VACCINE ( - 2023- season) 2024 DEPRESSION SCREENING 05/02/2024 INFLUENZA VACCINE (Season Ended) 2024 01/23/2021 ZOSTER VACCINE (1 of 2) 2028 HIB VACCINE Aged Out No longer eligi ble based on patient's age to complete this topic HPV VACCINE Aged Out No longer eligi ble based on patient's age to complete this topic MENINGOCOCCAL (Group B) VACCINE SHARED DECISION-MAKING Aged Out No longer eligible based on patient's age to complete this topic MENINGOCOCCAL GROUPS A/C/Y/W VACCINE Aged Out No longer eligible based on patient's age to complete this topic PNEUMOCOCCAL VACCINE Aged Out No long er eligible based on patient's age to complete this topic Procedures Procedure Name Priority Date/Time Associated Diagnosis Comments COMPREHENSIVE METABOLIC PANEL 06/02/2018 2:18 PM CRUSHER TENDER from Last 3 Months or Most Recently Relevant to Health Maintenance Results * COMPREHENSIVE METABOLIC PANEL (06/02/2018 2:18 PM CRUSHER TENDER) Pathologist [facility] Glucose 86 65 - 139 mg/dL [facility] Comment: Non-fasting reference interval BUN 13 7 - 25 mg/dL [facility] Creatinine 0.66 0.60 - 1.35 mg/dL [facility] eGFR by MDRD 122 > OR = 60 mL/min/1. 73m2 [facility] eGFR by MDRD 141 > OR = 60 mL/min/1. 73m2 [facility] BUN/Creatinine Ratio NOT APPLICABLE 6 - 22 (calc) [facility] Sodium 140 135 - 146 mmol/L [facility] Potassium 4.4 3.5 - 5.3 mmol/L [facility] Chloride 103 98 - 110 mmol/L [facility] CO2 31 20 - 32 mmol/L [facility] Calcium 9.8 8.6 - 10.3 mg/dL [facility] Protein Total 6.9 6.1 - 8.1 g/dL [facility] Albumin 4.3 3.6 - 5.1 g/dL [facility] Globulin Total 2.6 1.9 - 3.7 g/dL (calc) [facility] Albumin/Globuli n Ratio 1.7 1.0 - 2.5 (calc) [facility] Bilirubin Total 0.8 0.2 - 1.2 mg/dL [facility] Alkaline Phosphatase 55 40 - 115 U/L [facility] AST 23 10 - 40 U/L [facility] ALT 31 9 - 46 U/L [facility] Comment: Test Performed at: [facility] [id number] [address] CONTRERAS DE LA PAZ DO,MPH 06/02/2018 2:18 PM CRUSHER TENDER 06/02/2018 2:20 PM CRUSHER TENDER us Larissa Dickens WASH OIL PUMP OPERATOR HELPER-RAIL BENDER [facility] - CHEMISTRY CRISTOPHER MORALEZ Final Result [facility] [id number] [place] [address] from Last 3 Months or Most Recently Relevant to Health Maintenance Insurance [employer] SELF PAY NO INSURANCE Member Subscriber Plan / Payer (Ef fective for All Dates) Name:Promise Christensen IV Member ID:Not on file Relation to Subscriber:Not on file Name:PROMISE CHRISTENSEN IV Subscriber ID:Not on file (Home) Address: [address] [place] [id number] Payer ID:Not on file Group ID:Not on file Type:Self Pay Address: [place], [place] Advance Directives * Full Code (Latest Code Status on File) Date Activated Date Inactivated Comments 08/01/2017 4:08 PM 08/03/2017 11:45 AM
--- OUTSIDE RECORDS SUMMARY | 2024-08-24 13:13 | XMS_ITS | Clinical Summary ---
Author Organization [facility] Care Team Providers Care [place] [place] Limousine Name Role Phone Unavailable Primary Care Provider Unavailabl e Social History Tobacco Use Types Packs/Day Years Used Date Smoking Tobacco: Never Assessed Sex and Gender Information Value Date Recorded Sex Assigned at Not on file Legal Sex Male 11:14 PM CDT Gender Identity Not on file Sexual Orientation Not on file Plan of Treatment Health Maintenance Due Date Last Done Comments Hepatitis C Virus (HCV) Screening 1978 Hepatitis B Immunization (1 of 3 - 19+ 3-dose series) 1997 Colonoscopy 11/07/2023 Colorectal Cancer Screening 11/07/2023 Influenza Immunization (#1) 01/01/202401/01, 02/26/2019, 02/18/2017, Additional history exists SARS-COV-2 Immunization ( season) 2024 03/06/2021, 07/08/2020 Respiratory Syncytial Virus (RSV) Immunization (Adult) (1 - 1-dose 75+ series) 2053 Pneumococcal Immunization Combined Aged Out 12/27/2015 No longer eligible based on patient's age to complete this topic DTaP/Tdap/Td Immunization Discontinued 07/28/2019 TdaP Immunization Completed 07/28/2019 Meningococcal Immunization (ACWY) Aged Out No longer eligible based on patient's age to complete this topic Rotavirus Immunization Aged Out No lo nger eligible based on patient's age to complete this topic
--- OUTSIDE RECORDS SUMMARY | 2024-08-24 13:13 | XMS_ITS | Clinical Summary ---
Author Organization [facility] [address] Address [address] [place] [address] Care Team Providers Care Silo Man Name Role Phone Josemanuel Gandara MD Unavailable Kailash Best DO Primary Care Provider [phone] Allergies Active Allergy Reactions Criticality Noted Date Comments Penicillins Hives,Unknown Medium 12/31/2016 Penicillins Hives Medium 07/28/2019 Medications senna (SENOKOT) 8.6 mg tablet Take 1 tablet by mouth every morning Active calcium citrate-vitamin D3 500 mg-500 unit /5 gram powder Take 1 packet by mouth every morning Active ibuprofen (ADVIL,MOTRIN) 600 mg tablet Take 1 tablet (600 mg total) by mouth every 6 (six) hours 60 tablet 11/16/19 19 Active Additional Information Patient not taking.Reported on 08/10/2024 docusate sodium (DOK) 100 mg capsule Take 1 tablet (100 mg total) by mouth 2 (two) times a day as needed for constipation 30 tablet 11/16/19 19 Active rosuvastatin (CRESTOR) 5 mg tablet Take 1 tablet (5 mg total) by mouth daily 07/11/19 21 Active omeprazole (PriLOSEC) 40 mg capsule Take 1 capsule (40 mg total) by mouth daily 07/11/19 21 Active aspirin 81 mg enteric coated tablet Take 1 tablet (81 mg total) by mouth daily Active ascorbic acid (VITAMIN C ORAL) Take by mouth Active multivit-min/iron /folic acid/K (BARIATRIC MULTIVITAMINS ORAL) Take by mouth Active cholecalciferol (VITAMIN D-3) 1,000 unit Take 1 tablet/capsule (1,000 Units total) by mouth daily Active levocetirizine (XYZAL) 5 mg tablet Take 1 tablet (5 mg total) by mouth every evening Active Active Problems Problem Noted Date Diagnosed Date Ulnar neuropathy of right upper extremity 2018 Overview (11/13/2018): Added automatically from request for surgery [id number] Encounters Date Type Department Care Team Description 08/10/2024 8:40 AM CDT Office Visit [facility] [address] 6[address] [place] [address] [place] [id number] Alex Morris MD Left hand pain (Primary Dx) from Last 3 Months Immunizations Immunization Administration Dates Next Due Tdap 07/28/2019 Surgical History Surgery Date Site/Laterality Comments HERNIA REPAIR Hernia repair WISDOM TOOTH EXTRACTION 05/02/1997 - 05/01/1998 TYMPANOSTOMY TUBE PLACEMENT HERNIA REPAIR MYRINGOTOMY W/ TUBES GASTRIC BYPASS 05/02/2017 - 05/01/2018 ULNAR NERVE TRANSPOSITION 05/02/2018 - 05/01/2019 Right Medical History Medical History Date Comments Hx Other Medical HTN Dx'd in ~20 15. Rx Tx discontinued 3 weeks ago. Elective 185 lb wt loss since gastric bypass in 07/2017 Hypertension Other complications of anest hesia, sequela Pt is status post Gastric By pass. Pt reports he should NOT have any blind intubations or receiving of NSAIDS Delayed emergence from general anesthesia Family History Medical History Relation Name Comments Other Brother 2 Alive and well; Coronary artery disease Father Brenden nary artery disease; Diabetes type II Father Diabetes -T ype II; Hypertension Father Hypertension; Other Father Alive and well; Breast cancer Mother Cancer -breast ; Cause of : Cancer -breast Relation Name Status Comments Brother 1 Alive Brother 2 Father Alive Mother Paternal Grandfather (Age 65 y/o ) CVA Paternal Grandmother (Age 82 y/o ) ? HTN Social History Tobacco Use Types Packs/Day Years Used Date Smoking Tobacco: Never Smokeless Tobacco: Never Tobacco Cessation:Counseling Given: Not Answered Alcohol Use Standard Drinks/Week Comments No 0 (1 standard drink = 0.6 oz pur e alcohol) Humiliation, Afraid, Rape, and Kick questionnair e Answer Date Recorded Fear of Current or Ex-Partner Patient declined 0 11/17/2018 Emotionally Abused Patient declined 11/17/2018 Physically Abused Patient declined 11/17/2018 Sexually Abused Patient declined 11/17/2018 Social Connection and Isolation Panel [NHANES] A nswer Date Recorded Frequency of Communication with Friends and Fami ly Patient declined 11/17/2018 Frequency of Social Gatherings with Friends and Family Patient declined 11/17/2018 Attends [employer] Services Patient declined 10/30 Active Member of Clubs or Organizations Patient declined 11/17/2018 Attends Club or Organization Meetings Patient de clined 11/17/2018 Marital Status Patient declined 11/17/2018 Overall Financial Resource Strain (CARDIA) Answe r Date Recorded Difficulty of Paying Living Expenses Patient dec lined 11/17/2018 [facility] - Occupational Stress Questionnaire Answer Date Recorded Feeling of Stress Patient declined 11/17/2018 Exercise Vital Sign Answer Date Recorde d Days of Exercise per Week Patient declined 11/17 Minutes of Exercise per Session Patient declined 11/17/2018 Hunger Vital Sign Answer Date Recorded Worried About Running Out of Food in the Last Ye ar Patient declined 11/17/2018 Ran Out of Food in the Last Year Patient decline d 11/17/2018 PRAPARE - Transportation Answer Date Re corded Lack of Transportation (Medical) Patient decline d 11/17/2018 Lack of Transportation (Non-Medical) Patient dec lined 11/17/2018 Sex and Gender Information Value Date Recorded Sex Assigned at Not on file Legal Sex Male 6:39 PM NEMATOLOGY TEACHER Gender Identity Not on file Sexual Orientation Not on file Obstetrics History Last Filed Vital Signs Vital Sign Reading Time Taken Comments Blood Pressure 125/81 03/31/2022 8:33 AM NEMATOLOGY TEACHER Pulse 64 03/31/2022 8:33 AM NEMATOLOGY TEACHER Temperature 36.7 C (98 F) 07/28/2019 1:03 PM CDT Respiratory Rate 16 07/28/2019 1:03 PM CDT Oxygen Saturation 98% 07/28/2019 1:03 PM CDT Inhaled Oxygen Concentration - - Weight 136.6 kg (301 lb 3.2 oz) 03/31/2022 8:33 AM NEMATOLOGY TEACHER Height 177.8 cm (5' 10 ) 03/31/2022 8:33 AM NEMATOLOGY TEACHER Body Mass Index 43.22 03/31/2022 8:33 AM NEMATOLOGY TEACHER Plan of Treatment Health Maintenance Due Date Last Done Comments Colon Cancer Screening-Colonoscopy 1978 Depression Screening 1978 Hepatitis C Screening 1978 Hepatitis B Screening 1996 Regular Well Visit/Exam 18-64 1996 Influenza Vaccine (Season Ended) 2024 01/29/2020, 02/26/2019, 02/18/2017, Additional history exists DTaP/Tdap/Td Vaccine (2 - Td or Tdap) 07/27/2029 07/28/2019 Pneumococcal vaccine <65 Aged Out 12/27/2015 No longer eligible based on patient's age to complete this topic HPV Vaccines Aged Out No longer eligi ble based on patient's age to complete this topic Medical Devices Implanted Type Area Photocopy Operator Device Identifier Shelf Expiration Date Model / Serial / Lot [employer] [id number] Avance 2-3mm 50mm Allograft Multiple Clean Graft Soft Tissue - [id number] - [id number] Implanted:Qty: 1 on 11/15/2018 by Beatrice Good MD at [facility] [employer] 12/30/2020 [id number] / [id number] / Insurance [facility] HMO O Advance Directives For more information, please contact: [phone] * Full Code (Latest Code Status on File) Date Activated Date Inactivated Comments 11/15/2018 5:43 PM 11/16/2018 3:13 PM Care Teams Silo Man Relationship Specialty Start Date End Date Kailash Best DO [address] [place] [id number] PCP - General Internal Medicine 02/12/22 Josemanuel Gandara MD [address] [place] [address] Internal Medicine 07/28/19
--- OUTSIDE RECORDS SUMMARY | 2024-08-24 13:13 | XMS_ITS | Referral Summary ---
Author Organization [facility] [place] [address] [facility] lto Address [address] [place] [address] Care Team Providers Care Diamond Cutter Name Role Phone Josemanuel Gandara MD Unavailable Kailash Best DO Primary Care Provider [phone] Encounters Date Type Department Care Team Description 08/10/2024 8:40 AM CDT Office Visit [facility] Orthopaedic Surgery [address] Advanced Medicine 6th [place] [address] [place] [address] Alex Morris MD Left hand pain (Primary Dx) from Last 3 Months Allergies Active Allergy Reactions Criticality Noted Date [...] (11/13/2018): Added automatically from request for surgery [id number] Immunizations Immunization Administration Dates Next Due Tdap 07/28/2019 Social History Tobacco Use Types Packs/Day Years [...] Friends and Family Patient declined 11/17/2018 Attends [employer] Patient declined 10/30 Active Member of Clubs or Organizations Patient declined 11/17/2018 Attends Club or Organization Meetings Patient de clined 11/17/2018 Marital Status Patient declined 11/17/2018 Overall Financial Resource Strain (CARDIA) Answe r Date Recorded Difficulty of Paying Living Expenses Patient dec lined 11/17/2018 [facility] Occupat ional [facility] - Occupational Stress [...] on file Legal Sex Male 6:39 PM [employer] Gender Identity Not on file Sexual Orientation Not on file Last Filed Vital Signs Vital Sign Reading Time Taken Comments Blood Pressure 125/81 03/31/2022 8:33 AM [employer] Pulse 64 03/31/2022 8:33 AM [employer] Temperature 36.7 C (98 F) 07/28/2019 1:03 PM CDT Respiratory Rate 16 07/28/2019 1:03 PM CDT Oxygen Saturation 98% 07/28/2019 1:03 PM CDT Inhaled Oxygen Concentration - - Weight 136.6 kg (301 lb 3.2 oz) 03/31/2022 8:33 AM [employer] Height 177.8 cm (5' 10 ) 03/31/2022 8:33 AM [employer] Body Mass Index 43.22 03/31/2022 8:33 AM [employer] Plan of Treatment Not on file Medical Devices Implanted Type Area Technician Test Systems Device Identifier Shelf Expiration Date Model / Serial / Lot [employer] [id number] Avance 2-3mm 50mm Allograft Multiple Clean Graft Soft Tissue - [id number] - [id number] Implanted:Qty: 1 on 11/15/2018 by Beatrice Good MD at [facility] [employer] 12/30/2020 [id number] / [id number] / Insurance [facility] O O Advance Directives For more information, please contact: [phone] * Full Code (Latest Code Status on File) Date Activated Date Inactivated Comments 11/15/2018 5:43 PM 11/16/2018 3:13 PM Care Teams Diamond Cutter Relationship Specialty Start Date End Date Kailash Best DO [address] [place] [address] PCP - General Internal Medicine 02/12/22 Josemanuel Gandara MD [address] [place] [address] Internal Medicine 07/28/19
--- OUTSIDE RECORDS SUMMARY | 2024-08-24 13:13 | XMS_ITS ---
Author Organization Unknown Medications Medication Instructions Effective Dates (start - stop) Status rosuvastatin calcium 5 MG Or al Tablet - Completed mupirocin 0.02 MG/MG Topical Ointment - Completed rosuvastatin calcium 5 MG Or al Tablet - Completed rosuvastatin calcium 5 MG Or al Tablet - Completed rosuvastatin calcium 5 MG Or al Tablet - Completed Patient Care team information Name Category Status Period Participants - - Proposed period not known -
[2024-08-24 13:37] LABS: Alanine Aminotransferase 84 U/L (6-50); Albumin Level 4.2 g/dL (3.5-5.1); Alkaline Phosphatase 62 U/L (38-126); Anion Gap 4 mmol/L (4-12); Aspartate Amino Transferase 64 U/L (17-59); Bilirubin,Total 0.8 mg/dL (0.2-1.3); Blood Urea Nitrogen 11 mg/dL (9-20); Carbon Dioxide 30 mmol/L (22-30); Chloride 105 mmol/L (98-107); Cholesterol 102 mg/dL (0-200); Estimated Glomerular Filt Rate > 60; Glucose 102 mg/dL (65-110); HDL Direct 35 mg/dL; Sodium 139 mmol/L (137-145); Triglycerides 79 mg/dL (<150)
[2024-08-24 13:48] LABS: LDL Cholesterol Direct 48 mg/dL
== END 2024-08-24 13:09 | disposition home or self-care (01) ==
LOC: ANHLAB 13:11
PROVIDERS: PCP Nurse Practitioner; Visit Provider Nurse Practitioner
DX: E78.5 Hyperlipidemia, unspecified (principal)
CPT/HCPCS: 36415; 80053; 80061